=== PATIENT | male | born 1955 | race Caucasian/White ===

== ENCOUNTER 2019-08-19 14:46 | Emergency (ER) | payer OTHER ==
[~2019-08-19] VITALS: Ht 180.3 cm; Wt 101.3 kg
[~2019-08-19 14:46] MED LIST: ACET325T33 PO; AMLO5TAB4 PO; BACL10TA PO; CETI10CA PO; DIPH25CA42 PO; HYDR-4011 PO; IBUP-1542 PO; MONT10TA21 PO; SULF1TAB31 PO; TAMS-14 PO; TERA2CAP3 PO
[2019-08-19 15:25] VITALS: BP 136/69; PULSE 76; RESP 18; Ht 180.3 cm; Wt 101.3 kg
[2019-08-19] MEDS ORDERED: KETOROLAC 30 MG INJ IM STA (16:37)
== END 2019-08-19 17:09 | disposition home or self-care (01) ==
LOC: FTE 14:46
DX: M54.5 Low back pain (principal); I10 Essential (primary) hypertension; J45.909 Unspecified asthma, uncomplicated
CPT/HCPCS: 96372; J1885; Z7502